=== PATIENT | male | born 1940 | race Native Hawaiian/Other Pacific Islander ===

== ENCOUNTER 2017-03-24 14:39 | Emergency (ER) | payer OTHER, MEDICAID ==
[~2017-03-24] VITALS: Ht 172.7 cm; Wt 72.6 kg
[~2017-03-24 14:39] MED LIST: AMLO10TA4 PO; CALCITRIOL PO; FERR325T6 PO; HUMALOG INSULIN SQ; LANTUS INSULIN SQ; METO-302 PO; MULT1TAB73 PO; OMEP40CA37 PO; PRAV40TA3 PO; VITAMIN D PO
[2017-03-24] MEDS ORDERED: IV NORMAL SALINE 1000 ML BAG IV ONE (15:00)
[2017-03-24] MEDS ORDERED: ONDANSETRON 4 MG/2 ML VIAL IV ONE (15:00)
[2017-03-24] MEDS ORDERED: CARVEDILOL PO (15:05)
[2017-03-24] MEDS ORDERED: NIFEDIPINE PO (15:05)
[2017-03-24] MEDS ORDERED: ONDANSETRON 4 MG/2 ML VIAL ONE ×2 (15:16→17:03)
[2017-03-24 15:19] LABS: BASOPHILS % (AUTO) 0.6 % (0.0-2.0); EOSINOPHILS # (AUTO) 0.2 K/uL (0.0-0.7); EOSINOPHILS % (AUTO) 2.7 % (0.0-7.0); HEMATOCRIT 30.6 % (40-50); HEMOGLOBIN 10.1 G/DL (14.0-18.0); LYMPHOCYTES # (AUTO) 0.8 K/UL (0.8-4.8); LYMPHOCYTES % (AUTO) 12.8 % (20.5-51.5); MEAN CORPUSCULAR HEMOGLOBIN 28.3 UUG (27.0-31.0); MEAN CORPUSCULAR HGB CONC 33 g/dL (32.0-37.0); MEAN CORPUSCULAR VOLUME 85.7 FL (82.0-92.0); MONOCYTES # (AUTO) 0.2 K/UL (0.1-1.30); MONOCYTES % (AUTO) 3.9 % (0.0-11.0); PLATELET COUNT (AUTO) 343 K/UL (150-450); RED BLOOD CELL COUNT(AUTO) 3.57 MIL/UL (4.7-6.1); WHITE BLOOD COUNT (AUTO) 6.2 K/UL (4.0-11.2)
--- NOTE | 2017-03-24 15:23 | NUR ---
labs drawn-sent, iv placed, 1l 0.9ns bolus infusing, aofran iv administered. pt had cxr and ekg done. pt presently at ct scan. monitor shows nsr.
[2017-03-24 15:26] LABS: CARBON DIOXIDE 26 mmol/L (21-32); CHLORIDE 104 mmol/L (98-107); CREATININE 5.2 mg/dL (0.6-1.3); GLUCOSE 212 mg/dL (74-106); POTASSIUM 4.5 mmol/L (3.5-5.1); UREA NITROGEN, BLOOD 37 mg/dL (7-18)
[2017-03-24 15:33] LABS: ALANINE AMINOTRANSFERASE 27 U/L (16-63); ALKALINE PHOSPHATASE 84 U/L (50-136); ASPARTATE AMINOTRANSFERASE 16 U/L (15-37); BILIRUBIN,DIRECT 0.1 mg/dL (0.0-0.2); BILIRUBIN,TOTAL 0.4 mg/dL (0.2-1.0); LIPASE 219 U/L (73-393); TOTAL PROTEIN, SERUM 8.1 g/dL (6.4-8.2)
[2017-03-24] MEDS ORDERED: DICYCLOMINE HCL 10 MG/5 ML UDC LIQ PO ONE (15:45)
[2017-03-24] MEDS ORDERED: MAG HYDROX/AL HYDROX/SIMETH 30 ML LIQUID UDC PO ONE (15:45)
--- NOTE | 2017-03-24 15:45 | NUR ---
pharmacy note; bentyl and maalox meds not administered. dr lewis placed the order on the wrong pt. Dr Lewis gave verbal order to cancel bentyl and maalox.
--- NOTE | 2017-03-24 16:02 | NUR ---
called chava at [facility] for bls transport, eta 90min.
[2017-03-24] MEDS ORDERED: MECLIZINE HCL 25 MG TABLET PO ONE (16:30)
[2017-03-24] MEDS ORDERED: MECLIZINE HCL 25 MG TABLET ONE (16:37)
[2017-03-24] MEDS ORDERED: ONDANSETRON IV *ER 4 MG/2 ML VIAL IV ONE (16:45)
[2017-03-24] MEDS ORDERED: PROMETHAZINE HCL 25 MG/1 ML VIAL IV ONE (17:15)
[2017-03-24] MEDS ORDERED: PROMETHAZINE HCL 25 MG/1 ML VIAL ONE (17:31)
[2017-03-24 18:00] VITALS: BP 137/63
--- NOTE | 2017-03-24 18:00 | NUR ---
[facility] arrived, iv d/c'd sbar report to emt. aci and copies of lests given top pt's . pt transported via ambulannce, took all belongings.
== END 2017-03-24 18:11 | disposition home or self-care (01) ==
LOC: ER 14:40
DX: E11.65 Type 2 diabetes mellitus with hyperglycemia (principal); I10 Essential (primary) hypertension; K21.9 Gastro-esophageal reflux disease without esophagitis; Z79.4 Long term (current) use of insulin
CPT/HCPCS: 36415; 70030-TC; 71010; 83605; 83690; 85025; 85730; 87040; 93005; A4663; J2405; J2550; J7030; J8597